=== PATIENT | male | born 1970 | race Caucasian/White ===

== ENCOUNTER 2023-12-14 01:38 | Day surgery (SDC) | payer OTHER, SELFPAY ==
[2023-12-08 13:03] VITALS: BMI 26.5
--- NOTE | 2023-12-08 13:10 | PC.NURSE ---
Report to the Outpatient Waiting Room, entrance under the green pavilion located off [facility], at time _0600_ on date _[id number]_. Planned Procedure Time: _0730_.? Time changes happen often and if your time is changed the preop area will call you the afternoon before. - You and your visitor will be asked to self-screen and do not enter if you have any COVID symptoms. Please call surgeon if you need to reschedule. - A mask is optional within the hospital at this time. Patients may have clear liquids (water, carbonated beverages, clear teas, apple juice) until 3 hours prior to surgery with a maximum of 20 ounces. - No food from midnight until time of surgery and no smoking Take only the following medications with a SIP of water on the morning of surgery: ____Amlodipine and Metoprolol DO NOT STOP ANY OF YOUR OTHER PRESCRIPTION MEDICATIONS PRIOR TO SURGERY EXCEPT THE FOLLOWING Medications to discontinue per physician ____Multivitamin and fish oil Date to take last sndd___[phone] Please no make-up, nail vietnamese, hairspray, perfume, deodorant, or body powder the day of surgery.? No jewelry (including any body piercings) or valuables the day of surgery, leave them at home.? Please take a shower or bath the night before, or the morning of, surgery with an antibacterial soap.? Wear comfortable, loose fitting clothing.? - Jewelry must be removed prior to entering the operating room.? Rings and piercings that are not removed may be cut off. - The hospital will not accept responsibility for valuables.? - Please leave all valuables, including medications, at home the day of surgery. If you are going home after surgery, a licensed motor driver must drive you home.? - NO public transportation without another adult if you receive anesthesia. - We recommend that an adult stay with you for 24 hours following discharge. - We also recommend that you do not drive, make important decision, drink alcoholic beverages, or take any drugs that were not prescribed by your health care provider for at least 24 hours after your discharge time. Follow any additional instructions given to you from your surgeon. Telephone instructions given to __Scott__and asked if any additional questions and then verbalized understanding. Patient advised to call surgeon office or pre surgery nurse liaison [phone] if any additional questions.
[2023-12-14] VITALS (9 sets, daily range): BP systolic 100–145; BP diastolic 62–95; PULSE 60–72; RESP 14–20; TEMP 36.1–36.3; O2SAT 94–100
[2023-12-14] MEDS: LACTATED RINGERS 1,000 ML 30 ML IV CONT ×2 (06:30→07:51)
--- NOTE | 2023-12-14 07:03 | WPDANESEPPF ---
Anes - Initial Pre Proc Eval Procedure: Operation Date: 12/14/23 07:30 Proposed Procedures p Direct Laryngoscopy, Biopsy of Vocal Cord Lesion - Javier Cox MD Date/Time: 12/14/23 07:03 Surgeon: Javier Cox MD Pre Op Diagnosis: vocal cord lesion Patient Data Age: 53 Gender: M Height: 1.78 m Weight: 87.2 kg Last Vital Signs Temp 36.3 C L 12/14/23 06:23 Pulse 63 12/14/23 06:23 Resp 18 12/14/23 06:23 BP 145/95 H 12/14/23 06:23 Pulse Ox 100 12/14/23 06:23 O2 Del Method Room Air 12/14/23 06:23 Allergies Allergy/AdvReac Type Severity Reaction Status Date / Time YO Inhibitors AdvReac Intermediate Cough Verified 12/08/23 12:59 Home Medications Medication Instructions Recorded Confirmed Type allopurinol 100 mg tablet 100 mg PO DAILY 12/08/23 12/14/23 History amlodipine 10 mg tablet 10 mg PO DAILY 12/08/23 12/14/23 History gemfibrozil 600 mg tablet 600 mg PO BID 12/08/23 12/14/23 History metoprolol tartrate 25 mg tablet 25 mg PO BID 12/08/23 12/14/23 History multivitamin 1 tablet PO DAILY 12/08/23 12/14/23 History omega 3-ljs-kpy-fish oil 1,200 mg 1 cap PO DAILY 12/08/23 12/14/23 History (144 mg-216 mg) capsule (Fish Oil) omeprazole 20 mg capsule,delayed 20 mg PO DAILY 12/08/23 12/14/23 History release triamterene 75 1 tablet PO DAILY 12/08/23 12/14/23 History mg-hydrochlorothiazide 50 mg tablet Patient hx anesthesia problems: none Family hx anesthesia problems: none Results Review: All pre-operative results and documents have been reviewed as part of the pre-operative evaluation. [facility] Social History Social History Smoking status: Never smoker Alcohol intake: current Living arrangements: with family Spiritual care concerns: No Anes - Eval Final PreProcedure Day of Procedure 12/14/23 07:03 Patient weight: overweight Heart: regular rate and rhythm Lungs: clear to auscultation Airway: Mallampati scale class II Neurological: alert and oriented Last oral intake: >/= 8 hours ASA classification: III Emergent: no Anesthetic plan: proceed Anesthesia type and monitoring: general ETT and standard monitoring Results Review: All pre-operative results and documents have been reviewed as part of the pre-operative evaluation. Informed Consent: The patient's anesthetic plan and its attendant risks and benefits were discussed with the patient/family/POA. Questions were solicited and answers provided to the satisfaction of the patient/family/POA.
--- NOTE | 2023-12-14 07:06 | WPDHPUPDATE1 ---
History and Physical Update Update Date/Time: 12/14/23 07:06 History and Physical has been reviewed, including an updated exam of the patient. There are NO changes in the patient's condition. Risks, benefits, and alternatives have been discussed and questions answered. Patient agrees to proceed with procedure.
[2023-12-14] MEDS: OXYMETAZOLINE HCL 0.05% NAS 15 ML BTL (*BKC) 1 SPRAY NASAL (07:36)
--- NOTE | 2023-12-14 07:47 | W.PM.PROC2 ---
Procedure Note - Detailed Date of Procedure 12/14/23 Pre-op Diagnosis vocal cord lesion Post-op Diagnosis Same Procedure Performed Direct laryngoscopy with biopsy Surgeon Javier Cox MD Anesthesia General Indications left vocal fold lesion Findings polyp on left false fold. Photos taken. Description of Procedure On the date of surgery, the patient was identified in the preoperative holding area. All questions answered, consent signed and verified and they agreed to proceed. They were then brought to the OR and placed under general endotracheal anesthesia with a 7.0 sized endotracheal tube. A shoulder roll was placed. Timeout was performed verifying the correct patient identity and procedure to be performed which they were. The patient was then draped in standard fashion for direct laryngoscopy with biopsy. The bed was rotated 90 degrees counter-clockwise and a dental guard was placed to protect the upper teeth. A laryngoscope was then advanced in the oral cavity and upper airway to visualize all subsites of the oral cavity, oropharynx, hypopharynx and larynx. The only lesion noted was on the left false fold. The patient was then suspended from the galan stand. Under endoscopic visualization, using biopsy forceps, these lesion was removed with minimal damage to the healthy laryngeal mucosa. Minimal bleeding occurred and did not require significant intervention for hemostasis. With all specimen removed, the procedure was concluded. The laryngoscope was removed, the dental guard removed, and the oral cavity was examined showing no injury to lips, gums, teeth or tongue. Care of the patient was returned to anesthesia who extubated the patient and transferred to the PACU for recovery in stable condition without complication. Estimated Blood Loss 1 Drains No Packing No Pathology Yes (left vocal cord biopsy) Complications No immediate complications Condition Stable Disposition PACU
[2023-12-14] MEDS: SUGAMMADEX SODIUM 200 MG/2 ML VIAL IV PUSH (08:16)
== END 2023-12-14 09:52 | disposition home or self-care (01) ==
PROVIDERS: Visit Provider Otolaryngology
PROC: 0CJS8ZZ Inspection of Larynx, Via Natural or Artificial Opening Endoscopic (ICD-10-PCS; CPT 31535; principal; 2023-12-14 07:30)
DX: J38.1 Polyp of vocal cord and larynx (principal); K21.9 Gastro-esophageal reflux disease without esophagitis; I10 Essential (primary) hypertension; E78.00 Pure hypercholesterolemia, unspecified
CPT/HCPCS: 31535; 88305; A9270; J0330; J1100; J2250; J2405; J2704; J3010; J7120